=== PATIENT | male | born 1940 | race Two or more races ===

== ENCOUNTER 2016-11-22 18:51 | Emergency (ER) | payer BC, MEDICAID ==
[~2016-11-22] VITALS: Ht 177.8 cm; Wt 86.2 kg
[~2016-11-22 18:51] MED LIST: ALB5IS NEB; APIX5TAB PO; ASPI81CH43 PO; ATOR20TA50 PO; ENO60SY SC; IPR002IS NEB; LEVO500T21 PO; MEM5T PO
[2016-11-22 20:29] LABS: Basophils # (auto) 0 uL; Basophils % (auto) 0.4 % (0.0-2.0); CONDITION Y; Eosinophils # (auto) 0.1 uL; Eosinophils % (auto) 1.1 % (0.0-7.0); Hematocrit 38.6 % (41.0-53.0); Hemoglobin 13.1 g/dL (13.5-17.5); Lymphocytes % (auto) 14.9 % (10.0-50.0); Mean Corpuscular Hemoglobin 30.9 pg (28.0-32.0); Mean Corpuscular Hgb Conc. 33.9 g/dL (32.0-36.0); Mean Platelet Volume 8.3 fL (7.4-10.4); Monocytes # (auto) 0.5 uL; Neutrophils # (auto) 5.1 uL; Neutrophils % (auto) 76.6 % (37.0-80.0); Platelet Count (auto) 259 10^3/uL (140-450); Red Cell Distribution Width 13.6 % (11.6-16.0); White Blood Cell 6.7 10^3/uL (4.4-10.8)
[2016-11-22 20:48] LABS: Albumin 3.6 g/dL (3.4-5.0); Anion Gap 7 (5-15); Aspartate Aminotransferase 30 U/L (15-37); BUN/Creatinine Ratio 31.9; Blood Urea Nitrogen 23 mg/dL (7-18); Calcium 8.4 mg/dL (8.5-10.1); Carbon Dioxide 29 mmol/L (21-32); Chloride 106 mmol/L (98-107); GFR African American 136 mL/min; GFR Non-African American 112 mL/min; Glucose 88 mg/dL (74-106); Magnesium 2.1 mg/dL (1.6-2.6); Potassium 4.5 mmol/L (3.5-5.1); Sodium 142 mmol/L (136-145)
[2016-11-22 20:53] LABS: Alkaline Phosphatase 75 U/L (45-117); Bilirubin, Total 0.3 mg/dL (0.2-1.0)
[2016-11-22 21:06] LABS: Urine Bilirubin Negative (Negative); Urine Blood Negative /uL (Negative); Urine Color Yellow (Yellow); Urine Glucose Normal (Normal); Urine Ketone Negative (Negative); Urine Mucus FEW (None Seen); Urine Nitrite Negative (Negative); Urine RBC 3 /hpf (0 - 3); Urine Urobilinogen Normal (Negative); Urine pH 6.5 (5.0-8.0)
[2016-11-23 00:06] VITALS: BP 93/65
== END 2016-11-22 23:36 | disposition home or self-care (01) ==
LOC: EDBD 18:51 → ER 18:52
DX: G30.9 Alzheimer's disease, unspecified (principal); G93.41 Metabolic encephalopathy; I50.9 Heart failure, unspecified; I25.2 Old myocardial infarction; R41.82 Altered mental status, unspecified; Z79.899 Other long term (current) drug therapy
CPT/HCPCS: 36415; 51702; 70450; 71010; 80053; 80307; 80320; 81001; 83605; 83735; 84484; 85025; 87040; 93005

== ENCOUNTER 2017-09-06 16:46 | Inpatient (IN) | payer MEDICARE, MEDICAID ==
[~2017-09-06] VITALS: Ht 170.2 cm; Wt 45.5 kg
[2017-09-06 17:40] LABS: Basophils # (auto) 0 uL; Basophils % (auto) 0.6 % (0.0-2.0); Eosinophils # (auto) 0.1 uL; Eosinophils % (auto) 2.3 % (0.0-7.0); Hematocrit 43.1 % (41.0-53.0); Hemoglobin 14.7 g/dL (13.5-17.5); Lymphocytes # (auto) 0.9 uL; Lymphocytes % (auto) 26.3 % (10.0-50.0); Mean Corpuscular Hemoglobin 31.3 pg (28.0-32.0); Mean Corpuscular Hgb Conc. 34.1 g/dL (32.0-36.0); Mean Corpuscular Volume 91.6 fL (80.0-100.0); Monocytes # (auto) 0.2 uL; Monocytes % (auto) 6.1 % (0.0-12.0); Neutrophils # (auto) 2.2 uL; Neutrophils % (auto) 64.7 % (37.0-80.0); Nucleated Red Blood Cells % 0.1 %; Platelet Count (auto) 281 10^3/uL (140-450); Red Cell Distribution Width 13.2 % (11.8-14.3); White Blood Cell 3.4 10^3/uL (4.4-10.8)
[2017-09-06 18:06] LABS: Alanine Aminotransferase 31 U/L (16-61); Albumin 3.9 g/dL (3.4-5.0); Alkaline Phosphatase 78 U/L (45-117); Anion Gap 6 (5-15); Aspartate Aminotransferase 20 U/L (15-37); BUN/Creatinine Ratio 21.1; Bilirubin, Total 0.3 mg/dL (0.2-1.0); Blood Urea Nitrogen 15 mg/dL (7-18); Calcium 9.2 mg/dL (8.5-10.1); Carbon Dioxide 30 mmol/L (21-32); Chloride 102 mmol/L (98-107); GFR African American 138 mL/min; GFR Non-African American 114 mL/min; Glucose 120 mg/dL (74-106); Magnesium 2.2 mg/dL (1.6-2.6); Sodium 138 mmol/L (136-145); Total Protein 7.5 g/dL (6.4-8.2)
[2017-09-06 19:34] LABS: Urine Amorphous Crystal FEW /hpf (None Seen); Urine Bacteria FEW /hpf (None Seen); Urine Blood TRACE /uL (Negative); Urine Hyaline Cast FEW /lpf (0 - 2); Urine Mucus FEW (None Seen); Urine Specific Gravity 1.015 (1.001-1.035); Urine WBC 53 /hpf (0 - 3); Urine WBC Clumps PRESENT /hpf (None Seen)
[2017-09-06] MEDS ORDERED: LEVOFLOXACIN 500MG 100 ML IV ONE (20:00)
[2017-09-06] MEDS ORDERED: HYDROcodone-ACET 5/325MG TAB PO PRN (20:45)
[2017-09-06] MEDS ORDERED: MORPHINE SULFATE 4 MG/ML SYR/VIAL IV PRN (20:45)
[2017-09-06] MEDS ORDERED: ACETAMINOPHEN 500 MG TAB PO PRN (20:45)
[2017-09-06] MEDS ORDERED: ONDANSETRON HCL 4 MG/2 ML VIAL IV PRN (20:45)
[2017-09-06] MEDS ORDERED: LORazepam 0.5 MG TAB PO PRN (20:45)
[2017-09-06] MEDS ORDERED: ALBUTEROL SULF 2.5 MG/0.5ML(0.5%) NEB SOLN NEB PRN (20:45)
[2017-09-06] MEDS: MEMANTINE HCL 5 MG TAB PO SCH (22:19)
[2017-09-06 23:00] VITALS: BP 99/66
[2017-09-07 07:50] VITALS: BP 106/64
[2017-09-07] MEDS: MEMANTINE HCL 5 MG TAB PO SCH ×2 (10:00→22:00)
[2017-09-07] MEDS: APIXABAN 5 MG TAB PO SCH ×2 (10:00→22:00)
[2017-09-07] MEDS: ASPirin-EC 81 mg tab PO SCH (10:00)
[2017-09-07] MEDS: cefTRIAXone 1GM/10ml IVPUSH 10 ML IV SCH (10:29)
[2017-09-07 13:00] VITALS: BP 118/77
[2017-09-07 17:00] VITALS: BP 101/66
[2017-09-07 22:17] VITALS: BP 100/63
[2017-09-08 04:35] VITALS: BP 98/61
[2017-09-08] MEDS: cefTRIAXone 1GM/10ml IVPUSH 10 ML IV SCH (09:12)
[2017-09-08] MEDS: ASPirin-EC 81 mg tab PO SCH (10:00)
[2017-09-08] MEDS: APIXABAN 5 MG TAB PO SCH (10:00)
[2017-09-08] MEDS: MEMANTINE HCL 5 MG TAB PO SCH (10:00)
[2017-09-08 12:05] LABS: Basophils # (auto) 0 uL; Basophils % (auto) 1.3 % (0.0-2.0); Eosinophils # (auto) 0.1 uL; Eosinophils % (auto) 1.6 % (0.0-7.0); Hematocrit 40.8 % (41.0-53.0); Hemoglobin 14.3 g/dL (13.5-17.5); Lymphocytes # (auto) 1.4 uL; Mean Corpuscular Hemoglobin 31.9 pg (28.0-32.0); Mean Corpuscular Hgb Conc. 34.9 g/dL (32.0-36.0); Mean Corpuscular Volume 91.3 fL (80.0-100.0); Monocytes # (auto) 0.4 uL; Monocytes % (auto) 10.4 % (0.0-12.0); Neutrophils # (auto) 1.8 uL; Neutrophils % (auto) 48.7 % (37.0-80.0); Nucleated Red Blood Cells % 0.3 %; Platelet Count (auto) 251 10^3/uL (140-450); Red Blood Cells 4.47 10^6/uL (4.5-5.90); Red Cell Distribution Width 13.1 % (11.8-14.3); White Blood Cell 3.8 10^3/uL (4.4-10.8)
[2017-09-08 12:23] LABS: BUN/Creatinine Ratio 28.8; Calcium 8.9 mg/dL (8.5-10.1); Potassium 3.7 mmol/L (3.5-5.1)
[2017-09-08] MEDS ORDERED: VANCOMYCIN PER PHARMACY 0 MG IV SCH (13:00)
[2017-09-08] MEDS ORDERED: VANCOMYCIN 750 MG in D5W 5% 250 ML IV SCH (14:00)
[2017-09-08 14:47] VITALS: BP 104/65
[2017-09-08] MEDS: SODIUM CHLORIDE 0.9% 1,000 ML IV SCH (16:30)
[2017-09-08] MEDS: VANCOMYCIN 750 MG in D5W 5% 250 ML IV SCH ×2 (16:35→17:00)
[2017-09-08 17:39] VITALS: BP 115/72
[2017-09-08] MEDS ORDERED: LACTULOSE 20Gm/30ML SOLN PO ONE (21:30)
[2017-09-08 21:36] VITALS: BP 118/68
[2017-09-09 04:34] VITALS: BP 112/65
[2017-09-09] MEDS: VANCOMYCIN 750 MG in D5W 5% 250 ML IV SCH (04:57)
[2017-09-09] MEDS: SODIUM CHLORIDE 0.9% 1,000 ML IV SCH (05:55)
[2017-09-09 05:56] LABS: Basophils # (auto) 0 uL; Basophils % (auto) 0.6 % (0.0-2.0); Eosinophils # (auto) 0.1 uL; Hematocrit 39.1 % (41.0-53.0); Hemoglobin 13.6 g/dL (13.5-17.5); Lymphocytes # (auto) 1.8 uL; Lymphocytes % (auto) 53.7 % (10.0-50.0); Mean Corpuscular Hemoglobin 31.6 pg (28.0-32.0); Mean Corpuscular Hgb Conc. 34.7 g/dL (32.0-36.0); Mean Corpuscular Volume 90.9 fL (80.0-100.0); Monocytes # (auto) 0.4 uL; Monocytes % (auto) 10.9 % (0.0-12.0); Neutrophils # (auto) 1.1 uL; Neutrophils % (auto) 31.8 % (37.0-80.0); Nucleated Red Blood Cells % 0.2 %; Platelet Count (auto) 242 10^3/uL (140-450); Red Cell Distribution Width 12.8 % (11.8-14.3); White Blood Cell 3.4 10^3/uL (4.4-10.8)
[2017-09-09 06:13] LABS: Potassium 3.7 mmol/L (3.5-5.1)
[2017-09-09 06:18] LABS: BUN/Creatinine Ratio 28.8; Calcium 8.6 mg/dL (8.5-10.1)
[2017-09-09 09:11] VITALS: BP 83/53
[2017-09-09] MEDS ORDERED: ENOXAPARIN SOD 40 MG/0.4 ML SYRINGE SC SCH (10:00)
[2017-09-09] MEDS: cefTRIAXone 1GM/10ml IVPUSH 10 ML IV SCH (10:17)
[2017-09-09] MEDS: ASPirin-EC 81 mg tab PO SCH (10:18)
[2017-09-09 12:03] LABS: INR 1.04 (0.9-1.15); Prothrombin Time 11.3 sec (9.37-12.3)
[2017-09-09 13:09] VITALS: BP 94/60
[2017-09-09] MEDS ORDERED: LIDOCAINE 1% (LOCAL ANESTH.) PF 5ml SDV ID ONE (14:45)
[2017-09-09 15:22] VITALS: BP 120/51
[2017-09-09 15:40] VITALS: BP 120/51
[2017-09-09] MEDS ORDERED: VANCOMYCIN 750 MG in SODIUM CHL 0.9% 250 ML IV SCH (17:00)
[2017-09-09] MEDS ORDERED: SODIUM CHLOR 0.9% PF (SALINE LOCK) 10ML VIAL/SYR IV SCH (22:00)
== END 2017-09-09 16:30 | disposition hospice, home (50) | DRG 689 ==
LOC: ER 16:46 → EDBD 16:46 → OVERFLOW 16:47 → WEST WING 09-07 08:21
PROVIDERS: ADMIT Nurse Practitioner Family; ATTEND Internal Medicine
PROC: 02HV33Z Insertion of Infusion Device into Superior Vena Cava, Percutaneous Approach (ICD-10-PCS; principal; 2017-09-09)
DX: N39.0 Urinary tract infection, site not specified (principal); G93.41 Metabolic encephalopathy; I11.0 Hypertensive heart disease with heart failure; G30.1 Alzheimer's disease with late onset; I50.9 Heart failure, unspecified; J44.9 Chronic obstructive pulmonary disease, unspecified; F02.80 Dementia in other diseases classified elsewhere, unspecified severity, without behavioral disturbance, psychotic disturbance, mood disturbance, and anxiety; E78.5 Hyperlipidemia, unspecified; Z51.5 Encounter for palliative care; Z74.01 Bed confinement status; Z79.01 Long term (current) use of anticoagulants; Z82.0 Family history of epilepsy and other diseases of the nervous system; Z86.711 Personal history of pulmonary embolism; Z79.82 Long term (current) use of aspirin; Z79.899 Other long term (current) drug therapy
CPT/HCPCS: 36415; 71045; 71275; 80048; 80053; 81001; 82962; 83735; 84484; 85025; 85610; 87086; 87088; 87186; 93005; 96365; 96375; J1956; J7060